=== PATIENT | female | born 1980 | race Hispanic/Latino ===

== ENCOUNTER 2020-06-05 19:22 | Emergency (ER) | payer MEDICAID, OTHER ==
[2020-06-05] MEDS ORDERED: KETOROLAC 30MG VIAL (30MG/ML) ONE (19:40)
[2020-12-17] MEDS ORDERED: CYCL-309 PO (04:08)
== END 2020-06-05 21:25 | disposition home or self-care (01) ==
LOC: EDH 19:22
DX: M79.641 Pain in right hand (principal)
CPT/HCPCS: 73130; 96372; 99283; J1885

== ENCOUNTER 2020-12-17 02:53 | Emergency (ER) | payer MEDICAID, OTHER ==
[~2020-12-17] VITALS: Ht 154.9 cm; Wt 79.4 kg
[2020-12-17 02:58] VITALS: BP 123/75
[2020-12-17] MEDS ORDERED: ACETAMINOPHEN 500 MG TABLET ONE (03:17)
[2020-12-17] MEDS ORDERED: IBUPROFEN 600 MG TABLET ONE (03:17)
[2020-12-17] MEDS ORDERED: ACETAMINOPHEN 500 MG TABLET PO ONE (03:30)
[2020-12-17] MEDS ORDERED: IBUPROFEN 600 MG TABLET PO ONE (03:30)
[2020-12-17] MEDS ORDERED: CYCL10TA7 PO (04:08)
[2020-12-17] MEDS ORDERED: MELO7.5T12 PO (04:08)
[2020-12-17 04:12] VITALS: BP 124/71
== END 2020-12-17 04:27 | disposition home or self-care (01) ==
LOC: EDH 02:53
DX: S63.92XA Sprain of unspecified part of left wrist and hand, initial encounter (principal); S60.222A Contusion of left hand, initial encounter; Z79.1 Long term (current) use of non-steroidal anti-inflammatories (NSAID); X58.XXXA Exposure to other specified factors, initial encounter; Y93.89 Activity, other specified; Y92.89 Other specified places as the place of occurrence of the external cause; Y99.8 Other external cause status
CPT/HCPCS: 73130

== ENCOUNTER 2021-10-21 22:58 | Inpatient (IN) | payer OTHER ==
[~2021-10-21] VITALS: Ht 154.9 cm; Wt 93.7 kg
[~2021-10-21 22:58] MED LIST: CYCL-309 PO; DICL50TA9 PO; MELO7.5T12 PO
[2021-10-21] MEDS ORDERED: LACTATED RINGERS 1000ML 1,000 ML IV ONE (23:00)
[2021-10-21] MEDS ORDERED: ONDANSETRON 4MG INJ IVP ONE (23:00)
[2021-10-21] MEDS ORDERED: ZOSYN 3.375GM +NS 50ML IV SCH (23:30)
[2021-10-21] MEDS ORDERED: MORPHINE 4 MG SYG IVP ONE (23:30)
[2021-10-21] MEDS ORDERED: ONDANSETRON 4MG INJ IV ONE (23:30)
[2021-10-21] MEDS ORDERED: ACETAMINOPHEN 500 MG TABLET PO ONE (23:30)
[2021-10-21] MEDS ORDERED: ACETAMINOPHEN 500 MG TABLET ONE (23:31)
[2021-10-22 00:13] LABS: APPEARANCE,URINE CLEAR (CLEAR); BILIRUBIN,URINE NEGATIVE (NEGATIVE); COLOR,URINE YELLOW (YELLOW); GLUCOSE, URINE (UA) NEGATIVE (NEGATIVE); KETONES,URINE NEGATIVE (NEGATIVE); LEUKOCYTE ESTERASE ,URINE NEGATIVE (NEGATIVE); NITRATE,URINE POSITIVE (NEGATIVE); OCCULT BLOOD,URINE NEGATIVE (NEGATIVE); PH,URINE 6.5 (5.0-8.0); PROTEIN,URINE NEGATIVE (NEGATIVE); UROBILINOGEN,URINE 0.2 mg/dL (0.2-1.0)
[2021-10-22 00:17] LABS: HCG,QUAL RESULT NEGATIVE (NEGATIVE)
[2021-10-22 00:18] LABS: CREATININE 0.8 mg/dL (0.5-1.5)
[2021-10-22 00:19] LABS: BACTERIA,URINE Moderate /HPF (None Seen); MUCUS,URINE Rare LPF (None Seen); RBC,URINE None Seen /HPF (0-1); SQUAMOUS EPITHELIAL CELL,UR Few /HPF (0-2); WBC,URINE 0-1 /HPF (0-1)
[2021-10-22 00:22] LABS: ALBUMIN 3.6 g/dL (3.5-5.0); TOTAL PROTEIN, SERUM 7.7 g/dL (6.0-8.3)
[2021-10-22] MEDS ORDERED: IOHEXOL 350 MG/ML 100ML INFUS..BTL IV ONE (00:27)
[2021-10-22 00:38] LABS: BASOPHILS % (AUTO) 0.3 % (0.0-5.0); EOSINOPHILS % (AUTO) 2.8 % (0.0-8.0); HEMATOCRIT 27.4 % (36-48); LYMPHOCYTES % (AUTO) 32.8 % (21.0-51.0); MEAN CORPUSCULAR HEMOGLOBIN 16.6 pg (27.0-33.0); MEAN CORPUSCULAR VOLUME 61.6 fL (79-99); MONOCYTES % (AUTO) 10.8 % (3.0-13.0); NEUTROPHILS % (AUTO) 52.9 % (40.0-77.0); NUCLEATED RED BLOOD CELLS 0.2 % (0.0-0.19); PLATELET COUNT (AUTO) 293 K/uL (130-400); RED BLOOD CELL COUNT(AUTO) 4.45 MIL/uL (4.00-5.50); RED CELL DISTRIBUTION WIDTH 21.3 % (11.0-15.5); WHITE BLOOD COUNT (AUTO) 12.7 K/uL (4.8-10.8)
[2021-10-22] MEDS ORDERED: ACETAMINOPHEN 650 MG SUPPOSITORY RC PRN (02:00)
[2021-10-22] MEDS ORDERED: HYDROMORPHONE 1 MG INJ IV PRN (02:00)
[2021-10-22] MEDS ORDERED: 0.9%NACL 1000ML 1,434 ML IV ONE (02:00)
[2021-10-22] MEDS: 0.9%NACL 1000ML 1,000 ML IV SCH ×2 (03:04→12:33)
[2021-10-22 04:30] LABS: INR 0.98 (0.85-1.15); PROTHROMBIN TIME 10.7 SEC (9.6-11.6)
[2021-10-22 04:31] LABS: PARTIAL THROMBOPLASTIN TIME 26.1 SEC (26.3-35.5)
[2021-10-22 04:45] LABS: % IRON SATURATION 3.2 % (22-44)
[2021-10-22 05:00] VITALS: BP 122/64
[2021-10-22] MEDS: ZOSYN 3.375GM+NS 50ML 50 ML IV SCH ×3 (05:29→21:52)
[2021-10-22] MEDS: ONDANSETRON 4MG INJ IV PRN (05:29)
[2021-10-22 08:00] VITALS: BP 127/70
[2021-10-22 08:50] LABS: HEMATOCRIT 25.4 % (36-48)
[2021-10-22] MEDS: FAMOTIDINE 20MG VIAL IV SCH ×2 (09:11→21:52)
[2021-10-22] MEDS: MORPHINE 2 MG SYG IV PRN ×2 (09:30→16:07)
[2021-10-22 12:00] VITALS: BP 122/75
[2021-10-22] MEDS ORDERED: DIATR MEGLU/DIATRIZOATE SODIUM 30 ML BOTTLE ONE (12:06)
[2021-10-22] MEDS: IRON SUCROSE COMPLEX 300 MG in 0.9% NACL 250ML 250 ML IV SCH (13:16)
[2021-10-22] MEDS ORDERED: COMPOUND IV MISC 1 EACH IVSOLN MISC PRN (13:30)
[2021-10-22 16:00] VITALS: BP 146/52
[2021-10-22] MEDS ORDERED: HYDROMORPHONE 0.5 MG SYG (0.5MG/0.5ML) IVP PRN (19:00)
[2021-10-22] MEDS ORDERED: HYDROMORPHONE 1 MG INJ IVP PRN (19:30)
[2021-10-22 20:00] VITALS: BP 153/76
[2021-10-22 21:00] LABS: HEMATOCRIT 29.2 % (36-48)
[2021-10-22] MEDS: HYDROMORPHONE 0.5 MG SYG (0.5MG/0.5ML) IV PRN (22:05)
[2021-10-22 23:42] VITALS: BP 129/60
[2021-10-23 03:54] VITALS: BP 137/67
[2021-10-23] MEDS: HYDROMORPHONE 0.5 MG SYG (0.5MG/0.5ML) IV PRN ×2 (04:08→19:36)
[2021-10-23] MEDS: ZOSYN 3.375GM+NS 50ML 50 ML IV SCH ×3 (04:09→20:11)
[2021-10-23 05:14] LABS: BASOPHILS % (AUTO) 0.4 % (0.0-5.0); EOSINOPHILS % (AUTO) 1.9 % (0.0-8.0); HEMOGLOBIN A1C 5.9 % (4.0-6.0); LYMPHOCYTES % (AUTO) 28.5 % (21.0-51.0); MEAN CORPUSCULAR HEMOGLOBIN 18.8 pg (27.0-33.0); MEAN CORPUSCULAR HGB CONC 29.3 g/dL (32.0-36.0); MEAN CORPUSCULAR VOLUME 64.3 fL (79-99); MONOCYTES % (AUTO) 9.7 % (3.0-13.0); NEUTROPHILS % (AUTO) 58.5 % (40.0-77.0); NUCLEATED RED BLOOD CELLS 0.3 % (0.0-0.19); PLATELET COUNT (AUTO) 342 K/uL (130-400); WHITE BLOOD COUNT (AUTO) 13.4 K/uL (4.8-10.8)
[2021-10-23 05:36] LABS: CREATININE 0.6 mg/dL (0.5-1.5); POTASSIUM 3.3 mmol/L (3.5-5.1); THYROID STIMULATING HORMONE 1.87 uIU/mL (0.36-3.74)
[2021-10-23 08:00] VITALS: BP 142/68
[2021-10-23] MEDS: IRON SUCROSE COMPLEX 300 MG in 0.9% NACL 250ML 250 ML IV SCH (08:53)
[2021-10-23] MEDS: FAMOTIDINE 20MG VIAL IV SCH ×2 (08:53→20:11)
[2021-10-23] MEDS: ONDANSETRON 4MG INJ IV PRN (09:58)
[2021-10-23] MEDS ORDERED: KCL 20 MEQ ERTAB PO ONE (11:00)
[2021-10-23 12:00] VITALS: BP 147/85
[2021-10-23 16:00] VITALS: BP 126/79
[2021-10-23 20:11] VITALS: BP 129/73
[2021-10-23 23:17] VITALS: BP 132/65
[2021-10-24] MEDS: HYDROMORPHONE 0.5 MG SYG (0.5MG/0.5ML) IV PRN ×2 (03:13→10:13)
[2021-10-24 03:33] VITALS: BP 140/106
[2021-10-24 05:19] LABS: HEMATOCRIT 31.1 % (36-48); MEAN CORPUSCULAR HEMOGLOBIN 18.6 pg (27.0-33.0); MEAN CORPUSCULAR HGB CONC 28.3 g/dL (32.0-36.0); MEAN CORPUSCULAR VOLUME 65.9 fL (79-99); NUCLEATED RED BLOOD CELLS 0.7 % (0.0-0.19); PLATELET COUNT (AUTO) 247 K/uL (130-400); RED BLOOD CELL COUNT(AUTO) 4.72 MIL/uL (4.00-5.50); RED CELL DISTRIBUTION WIDTH 24.5 % (11.0-15.5); WHITE BLOOD COUNT (AUTO) 13.4 K/uL (4.8-10.8)
[2021-10-24 05:28] LABS: CREATININE 0.7 mg/dL (0.5-1.5)
[2021-10-24] MEDS: ZOSYN 3.375GM+NS 50ML 50 ML IV SCH (05:40)
[2021-10-24 08:00] VITALS: BP 117/61
[2021-10-24] MEDS: IRON SUCROSE COMPLEX 300 MG in 0.9% NACL 250ML 250 ML IV SCH (09:20)
[2021-10-24] MEDS: FAMOTIDINE 20MG VIAL IV SCH (09:20)
[2021-10-24] MEDS: ONDANSETRON 4MG INJ IV PRN (11:23)
[2021-10-24 11:29] VITALS: BP 120/59
[2021-10-24] MEDS ORDERED: ACET-2079 PO (12:12)
[2021-10-24] MEDS ORDERED: CEFU500T67 PO (13:18)
== END 2021-10-24 15:00 | disposition home or self-care (01) | DRG 872 ==
LOC: EDH 22:58 → EDHIP 22:59 → 3BH 10-22 04:41
PROVIDERS: ADMIT Internal Medicine; ATTEND Internal Medicine
PROC: 30233N1 Transfusion of Nonautologous Red Blood Cells into Peripheral Vein, Percutaneous Approach (ICD-10-PCS; principal; 2021-10-22)
DX: A41.9 Sepsis, unspecified organism (principal); N39.0 Urinary tract infection, site not specified; D50.9 Iron deficiency anemia, unspecified; R65.20 Severe sepsis without septic shock; N73.9 Female pelvic inflammatory disease, unspecified; Z20.822 Contact with and (suspected) exposure to COVID-19; M19.90 Unspecified osteoarthritis, unspecified site
CPT/HCPCS: 36415; 72170; 74176; 74177; 76830; 80048; 80053; 80061; 81001; 81025; 82728; 83036; 83540; 83550; 83605; 83690; 83735; 84100; 84145; 84443; 85014; 85018; 85025; 85027; 85610; 85730; 86850; 86900; 86901; 86923; 87040; 87077; 87088; 87186; 87635; 93005; G0378; J1170; J1756; J2270; J2405; J2543; J3490; J7030; J7050; J7120; P9016; Q9963; Q9967

== ENCOUNTER 2022-03-26 20:00 | Emergency (ER) | payer OTHER ==
[~2022-03-26] VITALS: Ht 152.4 cm; Wt 90.7 kg
[~2022-03-26 20:00] MED LIST changes: +ACET-2079 PO; +CEFU500T67 PO
[2022-03-26 20:43] LABS: BASOPHILS % (AUTO) 0.5 % (0.0-5.0); EOSINOPHILS % (AUTO) 3.1 % (0.0-8.0); HEMATOCRIT 36.5 % (36-48); LYMPHOCYTES % (AUTO) 34.7 % (21.0-51.0); MEAN CORPUSCULAR HEMOGLOBIN 23.9 pg (27.0-33.0); MEAN CORPUSCULAR HGB CONC 30.7 g/dL (32.0-36.0); MEAN CORPUSCULAR VOLUME 77.8 fL (79-99); MONOCYTES % (AUTO) 10.3 % (3.0-13.0); NEUTROPHILS % (AUTO) 50.9 % (40.0-77.0); PLATELET COUNT (AUTO) 317 K/uL (130-400); RED BLOOD CELL COUNT(AUTO) 4.69 MIL/uL (4.00-5.50); RED CELL DISTRIBUTION WIDTH 18.4 % (11.0-15.5); WHITE BLOOD COUNT (AUTO) 14.6 K/uL (4.8-10.8)
[2022-03-26 20:52] LABS: CREATININE 0.8 mg/dL (0.5-1.5)
[2022-03-26 20:59] LABS: ALBUMIN 3.7 g/dL (3.5-5.0); TOTAL PROTEIN, SERUM 7.7 g/dL (6.0-8.3)
[2022-03-26] MEDS ORDERED: KETOROLAC 30MG VIAL (30MG/ML) IVP ONE (22:00)
[2022-03-26 23:19] LABS: APPEARANCE,URINE CLEAR (CLEAR); BILIRUBIN,URINE NEGATIVE (NEGATIVE); COLOR,URINE LIGHT-YELLOW (YELLOW); GLUCOSE, URINE (UA) NEGATIVE (NEGATIVE); HCG,QUALITATIVE URINE NEGATIVE (NEGATIVE); KETONES,URINE NEGATIVE (NEGATIVE); LEUKOCYTE ESTERASE ,URINE 25 Leu/uL (NEGATIVE); NITRATE,URINE NEGATIVE (NEGATIVE); OCCULT BLOOD,URINE LARGE (NEGATIVE); PROTEIN,URINE 10 mg/dL (NEGATIVE); UROBILINOGEN,URINE 0.2 mg/dL (0.2-1.0)
[2022-03-26 23:21] LABS: BACTERIA,URINE RARE /HPF (None Seen); MUCUS,URINE RARE LPF (None Seen); SQUAMOUS EPITHELIAL CELL,UR MOD /HPF (0-2)
[2022-03-26] MEDS ORDERED: SULF1TAB42 PO (23:50)
[2022-03-27 00:15] VITALS: BP 115/51
== END 2022-03-27 00:39 | disposition home or self-care (01) ==
LOC: EDH 20:00
DX: N39.0 Urinary tract infection, site not specified (principal); D72.829 Elevated white blood cell count, unspecified; M94.0 Chondrocostal junction syndrome [Tietze]; M19.90 Unspecified osteoarthritis, unspecified site; Z79.1 Long term (current) use of non-steroidal anti-inflammatories (NSAID)
CPT/HCPCS: 99285; 96374; 71045; 84484; 80053; 85025; 81001; 81025; 36415; 93005; J1885

== ENCOUNTER 2022-06-24 00:11 | Emergency (ER) | payer OTHER ==
[~2022-06-24] VITALS: Ht 154.9 cm; Wt 81.6 kg
[~2022-06-24 00:11] MED LIST changes: +SULF1TAB42 PO
[2022-06-24] MEDS ORDERED: 0.9%NACL 1000ML 1,000 ML IV ONE (01:30)
[2022-06-24 01:35] LABS: BASOPHILS % (AUTO) 0.6 % (0.0-5.0); EOSINOPHILS % (AUTO) 3.7 % (0.0-8.0); HEMATOCRIT 25.4 % (36-48); LYMPHOCYTES % (AUTO) 43.7 % (21.0-51.0); MEAN CORPUSCULAR HEMOGLOBIN 19.7 pg (27.0-33.0); MEAN CORPUSCULAR HGB CONC 28.3 g/dL (32.0-36.0); MEAN CORPUSCULAR VOLUME 69.4 fL (79-99); MONOCYTES % (AUTO) 11.2 % (3.0-13.0); NEUTROPHILS % (AUTO) 40.1 % (40.0-77.0); NUCLEATED RED BLOOD CELLS 0.4 % (0.0-0.19); PLATELET COUNT (AUTO) 394 K/uL (130-400); RED BLOOD CELL COUNT(AUTO) 3.66 MIL/uL (4.00-5.50); RED CELL DISTRIBUTION WIDTH 20.1 % (11.0-15.5); WHITE BLOOD COUNT (AUTO) 10.3 K/uL (4.8-10.8)
[2022-06-24 01:45] LABS: CREATININE 0.7 mg/dL (0.5-1.5); POTASSIUM 3.7 mmol/L (3.5-5.1)
[2022-06-24 01:50] LABS: ALBUMIN 3.4 g/dL (3.5-5.0); TOTAL PROTEIN, SERUM 6.8 g/dL (6.0-8.3)
[2022-06-24 02:40] LABS: APPEARANCE,URINE CLOUDY (CLEAR); BILIRUBIN,URINE NEGATIVE (NEGATIVE); COLOR,URINE LIGHT-ORANGE (YELLOW); GLUCOSE, URINE (UA) NEGATIVE (NEGATIVE); KETONES,URINE NEGATIVE (NEGATIVE); LEUKOCYTE ESTERASE ,URINE 25 Leu/uL (NEGATIVE); NITRATE,URINE NEGATIVE (NEGATIVE); OCCULT BLOOD,URINE LARGE (NEGATIVE); PROTEIN,URINE 20 mg/dL (NEGATIVE); UROBILINOGEN,URINE 0.2 mg/dL (0.2-1.0)
[2022-06-24 02:42] LABS: MUCUS,URINE RARE LPF (None Seen); RBC,URINE TNTC /HPF (0-1); SQUAMOUS EPITHELIAL CELL,UR RARE /HPF (0-2)
[2022-06-24] MEDS ORDERED: FERR-82 PO (02:51)
[2022-06-24] MEDS ORDERED: DOCU-116 PO (02:51)
[2022-06-24] MEDS ORDERED: CEPH500B PO (02:54)
[2022-06-24 03:19] VITALS: BP 122/54
== END 2022-06-24 03:25 | disposition home or self-care (01) ==
LOC: EDH 00:11
DX: D64.9 Anemia, unspecified (principal); N93.8 Other specified abnormal uterine and vaginal bleeding; N39.0 Urinary tract infection, site not specified; M19.90 Unspecified osteoarthritis, unspecified site; Z79.899 Other long term (current) drug therapy; Z98.890 Other specified postprocedural states
CPT/HCPCS: 36415; 76856; 80053; 81001; 85025; 86850; 86900; 86901; 96360

== ENCOUNTER 2023-02-27 01:27 | Emergency (ER) | payer OTHER ==
[~2023-02-27] VITALS: Ht 149.9 cm; Wt 82.1 kg
[~2023-02-27 01:27] MED LIST changes: +CEPH500B PO; +DOCU-116 PO; +FERR-82 PO
[2023-02-27 01:52] LABS: SARS-CoV-2, RNA, NAAT NEGATIVE SARS CoV-2 (NEGATIVE)
[2023-02-27 01:56] LABS: INFLUENZA TYPE A Negative For Type A (NEGATIVE); INFLUENZA TYPE B Negative For Type B (NEGATIVE)
[2023-02-27] MEDS ORDERED: GABA300C PO (03:10)
[2023-02-27] MEDS ORDERED: CYCL-309 PO (03:10)
[2023-02-27] MEDS ORDERED: IBUP-1493 PO (03:10)
[2023-02-27 03:25] VITALS: BP 131/63; PULSE 79; RESP 18; O2SAT 97
[2023-02-27] MEDS ORDERED: IBUPROFEN 800 MG TAB PO ONE (03:30)
[2023-02-27] MEDS ORDERED: GABAPENTIN 300 MG CAPSULE PO SCH (03:30)
[2023-02-27] MEDS ORDERED: CYCLOBENZAPRINE HCL 10 MG TABLET PO ONE (03:30)
== END 2023-02-27 04:28 | disposition home or self-care (01) ==
LOC: EDH 01:27
DX: H92.03 Otalgia, bilateral (principal); M79.18 Myalgia, other site; B34.9 Viral infection, unspecified; Z20.822 Contact with and (suspected) exposure to COVID-19; M19.90 Unspecified osteoarthritis, unspecified site; Z79.899 Other long term (current) drug therapy; Z98.890 Other specified postprocedural states
CPT/HCPCS: 99284; 87635; 87804 ×2; C9803

== ENCOUNTER 2024-06-10 13:03 | Emergency (ER) | payer SELFPAY ==
[~2024-06-10] VITALS: Ht 154.9 cm; Wt 82.6 kg
[~2024-06-10 13:03] MED LIST changes: +GABA300C PO; +IBUP-1493 PO
--- NOTE | 2024-06-10 13:32 | ERN ---
General Chief Complaint: Cough Stated Complaint: BODY ACHES,BACK PAIN,MULTIPLE COMPLAINTS Time Seen by MD: 13:04 History of Present Illness Initial Comments 43-year-old female who presents for cough, sore throat, body aches for 48 hours. Other family members tested positive for influenza A. No respiratory distress. Productive cough. Allergies: Coded Allergies: No Known Drug Allergies (Unverified Allergy, Unknown, 12/17/20) Home Meds Active Scripts Cyclobenzaprine HCl (Cyclobenzaprine HCl) 10 Mg Tablet, 10 MG PO TIDP PRN for PAIN, #30 TAB Prov:PAULETTE MCNALLY MD 02/27/23 Gabapentin (Neurontin) 300 Mg Capsule, 300 MG PO TID, #60 CAP Prov:PAULETTE MCNALLY MD 02/27/23 Ibuprofen (Motrin/Advil) 800 Mg Tab, 800 MG PO TID, #30 TAB Prov:PAULETTE MCNALLY MD 02/27/23 Cephalexin Monohydrate (Keflex) 500 Mg Cap, 500 MG PO TID for 7 Days, #21 CAP Prov:AURELIA REYES MD 06/24/22 Docusate Sodium (Colace) 100 Mg Capsule, 100 MG PO BID PRN for CONSTIPATION for 10 Days, #20 CAP Prov:AURELIA REYES MD 06/24/22 Ferrous Sulfate (Iron) 325 Mg Tablet, 325 MG PO DAILY for 10 Days, #10 TAB Prov:AURELIA REYES MD 06/24/22 Sulfamethoxazole/Trimethoprim (Bactrim Ds Tablet) 1 Each Tablet, 1 TAB PO BID for 7 Days, #14 TAB 0 Refills Prov:ABI MONROY V DEMOLITION CRANE OPERATOR 03/26/22 Cefuroxime Axetil (Cefuroxime) 500 Mg Tablet, 500 MG PO BID, #8 TAB 0 Refills Prov:ADILIA GEORGES AGPCNP 10/24/21 Acetaminophen with Codeine (Acetaminophen-Cod #3 Tablet) 1 Each Tablet, 1 EACH PO Q6HPRN PRN for MODERATE PAIN (4-6), #15 TAB 0 Refills Prov:ADILIA GEORGES AGPCNP 10/24/21 Diclofenac Sodium (Diclofenac Sodium) 50 Mg Tablet.dr, 50 MG PO TIDP PRN for SEVERE PAIN (7-10), #20 TAB 0 Refills Prov:NUNO QUEZADA MD 07/04/21 Cyclobenzaprine HCl (Cyclobenzaprine HCl) 10 Mg Tablet, 10 MG PO TIDP, #20 TAB 0 Refills Prov:FRED GRACE MD 12/17/20 Meloxicam (Mobic) 7.5 Mg Tablet, 7.5 MG PO DAILY, #10 TAB 0 Refills Prov:FRED GRACE MD 12/17/20 Past Medical History Past Medical History: No Pertinent History, Arthritis Past Surgical History: Family History Family History: Negative Social History Social History: Negative, Lives with family, Other Female( History) LMP: May 15, 2024 ROS Dictation CONSTITUTIONAL: Fevers HEAD/FACE: No signs of trauma. EENT: No eye pain, no blurred vision, no tearing, no double vision, no ear pain, no ear discharge, no nose pain, no nasal congestion, no throat pain, no throat swelling, no mouth pain. RESPIRATORY: Productive cough CARDIOVASCULAR: No chest pain, no edema, no palpitations, no syncope. GASTROINTESTINAL/ABDOMINAL: No abdominal pain, no constipation, no diarrhea, no nausea, no vomiting. GENITOURINARY: No abnormal discharge, no dysuria, no frequent urination, no hematuria. No complaints of pain in the genitals. MUSCULOSKELETAL: No back pain, no gout, no joint pain, no joint swelling, no muscle pain, no muscle stiffness, no neck pain. INTEGUMENTARY: No change in color, no change in hair/nails, no dryness, no lesion, no lumps, no rash. NEUROLOGICAL/PSYCH: No anxiety, not depressed, no emotional problem, no headache, no numbness, no pre-existing deficit, no history of seizures, no tremors, no weakness. HEMATOLOGIC/LYMPHATIC: Not anemic, no history of blood clots, no apparent bleeding, no bruising, glands not swollen. All Systems Negative, Except as Noted. Physical Exam Physical Exam Dictation VITAL SIGNS: Reviewed. GENERAL APPEARANCE: Alert, oriented x3, no acute distress, obese. HEAD AND FACE: Non-traumatic. EYES: PERRL, pink conjunctivas, eyelid no trauma, anterior chamber clear. EARS: Pinnas intact and no signs of trauma or erythema. Ear canals clear and no discharge. TMs no erythema. NOSE: No discharge, no bleeding. OROPHARYNX: Mouth normal, teeth no caries, tongue pink. Pharynx clear, no erythema. Tonsils no exudates, no abscesses noted. Mucous membrane moist. NECK: Supple, non-tender, no thyromegaly, no masses, no JVD, no bruits. BREAST: Deferred. CHEST: No tenderness, no crepitus, no paradoxical movement, no retractions. LUNGS: Clear, well-ventilated, symmetric, no rales, no wheezing, no rhonchi, no stridor, good breath sounds bilaterally. HEART: Regular rate, regular rhythm, no murmur, no gallops. VASCULAR: No peripheral edema. ABDOMEN: Soft, positive bowel sounds, nondistended, no guarding, nontender, no rebound, no masses no hepatomegaly, no splenomegaly, no Davis's sign, no hernias. RECTAL: Deferred. GENITAL: Deferred. NEUROLOGICAL: Normal speech, gross motor function intact, gross sensory function intact. MUSCULOSKELETAL: Neck nontender, full range of motion, back nontender, full range of motion. EXTREMITIES: Nontender, full range of motion. SKIN: Color pink, dry, no turgor, no rash, no lacerations, no abrasions, no contusions. LYMPHATICS: Deferred. Results Laboratory and Microbiology Lab and Micro Result Laboratory Tests Test 06/10/24 13:25 Influenza Type A Antigen Positive For Type A Influenza Type B Antigen Positive For Type B SARS-CoV-2 Antigen (Rapid) PRESUMPTIVE NEGATIVE MDM CC: Flu-like symptoms Historian: Patient Comorbidities: Obesity Limitations by social determinants of health: Uninsured Differential diagnosis: Flu-like illness Vital signs: Febrile, otherwise unremarkable. Symptoms improved in the ER after treatment. Flu a positive consistent with the symptoms. Lung sounds are clear. Nontoxic in appearance We will DC with Tamiflu recommend PCP follow up. ED Course Orders Procedure Category Date Status Time Covid19 (Sars Antigen LAB 06/10/24 Complete Rapid) 13:05 Influenza Type A & B, LAB 06/10/24 Complete Rapid 13:05 Chest 1vw RAD 06/10/24 Logged 13:30 Acetaminophen 500mg PHA 06/10/24 Complete Tab (Tylenol 500mg T 14:00 Current Medications Medications (Trade) Dose Ordered Sig/Amber Route PRN Reason Start Time Stop Time Status Last Admin Dose Admin Acetaminophen (TYLenol 500MG TAB) 1,000 mg ONCE ONCE PO 06/10/24 14:00 06/10/24 14:01 DC Vital Signs Date Time Temp Pulse Resp B/P (MAP) Pulse Ox O2 Delivery O2 Flow Rate FiO2 06/10/24 14:18 100.6 102 18 116/79 96 Room Air* 0 21 06/10/24 13:11 100.6 102 18 110/79 96 Room Air 0 DX & DISP Disposition: Discharge Departure Impression: Primary Impression: Influenza A Condition: Stable Scripts Oseltamivir Phosphate (Tamiflu) 75 Mg Cap 1 CAP PO BID for 5 Days, #10 CAP 0 Refills Prov: USHA FLOWERS DO 06/10/24 Additional Instructions: You tested positive for influenza a and B, or the flu. This is a viral illness. I have prescribed Tamiflu, which is an antiviral medication. Take as prescribed. Be sure to alternate Tylenol (1000 mg) and ibuprofen (600 mg) every 4 hours as needed for fever body aches. Drink plenty of liquids. An electrolyte solution such as Gatorade as good ch oice. Monitor for any respiratory distress or chest pains. Return to the emergency department they develop. Please follow up with your primary doctor next week if you continue with symptoms. Return to the emergency department as needed. Referrals: GABRIELA SHIN MD (PCP) USHA FLOWERS DO Jun 10, 2024 13:32
[2024-06-10 13:59] LABS: COVID19 (SARS ANTIGEN RAPID) PRESUMPTIVE NEGATIVE (NEGATIVE)
[2024-06-10 14:01] LABS: INFLUENZA TYPE A Positive For Type A (NEGATIVE); INFLUENZA TYPE B Positive For Type B (NEGATIVE)
[2024-06-10 14:18] VITALS: BP 116/79; PULSE 102; RESP 18; TEMP 100.5; O2SAT 96
[2024-06-10] MEDS ORDERED: OSEL75 PO (14:28)
[2024-06-10] MEDS: acetaMINOPHEN 500 MG TABLET PO ONE (14:43)
--- NOTE | 2024-06-10 15:04 | HMCIMG ---
PORTABLE CHEST RADIOGRAPH INDICATION: cough COMPARISON: 03/26/2022 FINDINGS: Heart size is normal. The pulmonary vascularity and reji appear normal. No abnormal pulmonary parenchymal opacity or consolidation identified. No significant pleural effusion noted. No pneumothorax detected. IMPRESSION: No radiographic evidence for any acute cardiopulmonary process.
== END 2024-06-10 14:53 | disposition home or self-care (01) ==
LOC: EDH 13:03
DX: J10.1 Influenza due to other identified influenza virus with other respiratory manifestations (principal); E66.9 Obesity, unspecified; Z20.822 Contact with and (suspected) exposure to COVID-19; Z79.1 Long term (current) use of non-steroidal anti-inflammatories (NSAID); Z79.899 Other long term (current) drug therapy
CPT/HCPCS: 71045; 87426; 87804; 99284